=== PATIENT | female | born 1945 ===

== ENCOUNTER 2024-05-08 08:24 | Outpatient (REF) | payer OTHER, SELFPAY ==
--- NOTE | ~2024-05-08 | XR_ITS ---
EXAMINATION: XR LUMBAR SPINE CLINICAL INFORMATION: Spondylolisthesis, lumbosacral region M43.17. COMPARISON: None TECHNIQUE: AP, lateral, flexion and extension views of lumbar spine were obtained. FINDINGS: Grade 1 anterolisthesis of L4 on L5 and L5 on S1, stable over position changes. Otherwise, sagittal alignment is anatomic. Vertebral body heights are maintained. No fracture. Moderate L5-S1 degenerative disc disease with loss of intervertebral disc height. Otherwise, intervertebral disc spaces are maintained. Multilevel lower lumbar facet arthropathy. Visualized sacroiliac joints are normal. Paraspinal soft tissues are normal. XR/XR lumbar spine 4V min IMPRESSION: 1. Grade 1 anterolisthesis of L4 on L5 and L5 on S1, stable over position changes. 2. Moderate L5-S1 degenerative disc disease. 3. Multilevel lower lumbar facet arthropathy. Electronically signed by: Quynh Saleh DO 06/19/2024 02:48 PM [facility]
== END 2024-05-08 08:25 | disposition home or self-care (01) ==
LOC: HO.HOSX 08:24
PROVIDERS: PCP Registered Nurse; Visit Provider Neurological Surgery
DX: M43.17 Spondylolisthesis, lumbosacral region (principal)
CPT/HCPCS: 72110; 99202

== ENCOUNTER 2024-05-08 08:24 | Outpatient (AMB) | payer OTHER, SELFPAY ==
--- NOTE | 2024-05-08 09:01 | HO.SPINEOV ---
Vital Signs 05/08/24 09:24 Height 5 ft 3 in Weight 143 lb BMI 25.3 Intake Visit Reasons: LBP Intake Note: Ms. Juan Manuel Isabel is here today c/o low back pain that radiates down the legs. Contract Admin Required: No Physical Exam Vital Signs: BMI result Body Mass Index 25.3 Assessment & Plan Assessment & Plan (1) Acquired spondylolisthesis of lumbosacral region: Code(s): M43.17 - Spondylolisthesis, lumbosacral region Category: Medical Plan: Dear colleague Thank you for referring Puja Isabel to the office today with a chief complaint of severe low back pain and bilateral leg pain. HPI: This 79-year-old female has been suffering from progressive low back pain since 4 years. The pain is located across the lumbar spine and then radiates down her legs. She can not stand or walk for more than 10 minutes. Changing positions from sitting to standing is very painful. Laying down is the best position. She denies weakness or numbness. She was evaluated by a neurosurgeon at [facility] who recommended an L5-S1 fusion. She was scared and decided not to go ahead. She comes to see me for another opinion. She states that her back pain has further progressed over the last 2 years. The following conservative treatment options were tried without success antiinflammatories, tylenol, physical therapy physician guided home exercise plan, cortisone shots and acupuncture. PMH: Insomnia, fibromyalgia, osteopenia? Medications: None Allergies: NKDA Social history: She lives alone. She has a AUTO TRANSMISSION TECHNICIAN Physical Exam: Pleasant female. It is hard to get out of the chair due to low back pain. She stands in a flexed position. Extension of the lumbar spine is painful. Straight leg raise is negative. No motor or sensory deficits. No pathological reflexes. Radiological Studies: [facility] shows severe lumbar degenerative disc disease L5-S1 with a grade 1-2 spondylolisthesis and associated bilateral L5 foraminal stenosis. In addition, there are Modic changes of the endplates. A dynamic lumbar x-ray obtained today confirms the L5-S1 spondylolisthesis. Impression/Plan: This patient is suffering from progressive severe low back pain and symptoms of neurogenic claudication most likely caused by L5-S1 spondylolisthesis and associated bilateral foraminal stenosis. There is a possible history of osteopenia and therefore would like to obtain a CT scan of the lumbar spine in order to decide if a lumbar fusion is feasible. Thank you for allowing me to participate in your patients care. total time spent was 50 minutes in counseling ,coordination of plan, personal review of imaging, surgical decision making and subsequent plan Yunier Morfin MD, PhD Spine Fellowship Trained Neurosurgeon Director, [facility] Orders: Orders XR lumbar spine 4V min Today M43.17 - Spondylolisthesis, lumbosacral region CT lumbar spine wo IV con Today M43.17 - Spondylolisthesis, lumbosacral region Coding Level of Care Code New Pt Level 4 (80789) Diagnoses Acquired spondylolisthesis of lumbosacral region M43.17
[2024-05-08 09:24] VITALS: BMI 25.3
== END 2024-05-08 09:26 | disposition home or self-care (01) ==
LOC: HO.HNS 08:25
PROVIDERS: PCP Registered Nurse; Visit Provider Neurological Surgery
DX: M43.17 Spondylolisthesis, lumbosacral region (principal)
CPT/HCPCS: 99204

== ENCOUNTER 2024-06-17 07:21 | Outpatient (REF) | payer OTHER, SELFPAY | END 2024-06-17 07:22 | disposition home or self-care (01) | LOC: HO.CT 07:21 | PROVIDERS: PCP Registered Nurse; Visit Provider Neurological Surgery | DX: M43.17 Spondylolisthesis, lumbosacral region (principal) | CPT/HCPCS: 72131 ==

== ENCOUNTER 2024-07-24 12:51 | Outpatient (AMB) | payer OTHER, SELFPAY ==
--- NOTE | 2024-07-24 13:47 | A.SPINEOV_ITS ---
Intake Visit Reasons: CT f/up Intake Note: Ms. Juan Manuel Isabel is here today f/u on the results to her CT. Vice President Talent Management Required: No Allergies No Known Allergies Allergy (Verified 07/24/24 13:47) Assessment & Plan Assessment & Plan (1) Acquired spondylolisthesis of lumbosacral region: Code(s): M43.17 - Spondylolisthesis, lumbosacral region Category: Medical Plan Dear colleague, On 07/24/2024 I saw for follow-up Puja Isabel for her progressive low back pain radiating down both legs with walking and standing. She has a grade 1-2 L5-S1 spondylolisthesis and bilateral L5 foraminal stenosis responsible for her symptomatology. I ordered a CT of the lumbar spine to assess the bone quality which clearly shows osteopenia. The symptoms are debilitating to the patient and she is willing to take the risk of hardware failure. We discussed surgical options. An anterior lumbar interbody fusion/oblique lumbar interbody fusion L5-S1 would be the approach with the highest success rate in this patient. The vertebral implant will be sitting on the outer ring of the vertebral body which is least affected by osteopenia/osteoporosis and therefore reduces the risk of subsidence. It will also indirectly decompress the L5 foramina that should help with the neurogenic claudication symptoms. She wants to proceed. We will refer to the access surgeon, . The surgery will most likely be in the middle of September. She states that she recently had with the amount of blood in her stool in his scheduled for colonoscopy in December. I spent 30 minutes in his consult to review imaging and discussing plan of care. Thank you for allowing me take care of your patient. Do not hesitate to call me with any questions or concerns. Yunier Morfin MD, PhD Spine Fellowship Trained Neurosurgeon Director, [facility] Coding Level of Care Code Est Pt Level 4 (57141) Diagnoses Acquired spondylolisthesis of lumbosacral region M43.17
== END 2024-07-24 14:34 | disposition home or self-care (01) ==
PROVIDERS: PCP Registered Nurse; Visit Provider Neurological Surgery
DX: M43.17 Spondylolisthesis, lumbosacral region (principal)
CPT/HCPCS: 99214

== ENCOUNTER → 2024-07-24 12:51 | Outpatient (BNVA) | payer OTHER, SELFPAY | PROVIDERS: PCP Registered Nurse; Visit Provider Neurological Surgery | DX: M43.17 Spondylolisthesis, lumbosacral region (principal) | CPT/HCPCS: 99212 ==

== ENCOUNTER 2024-08-04 08:06 | Outpatient (BNV) | payer OTHER, SELFPAY | END 2024-08-04 11:35 | PROVIDERS: Admitting Provider Physician Assistant; PCP Registered Nurse; Visit Provider Radiology Diagnostic Radiology | DX: M43.27 Fusion of spine, lumbosacral region (principal) | CPT/HCPCS: 72170 ==

== ENCOUNTER → 2024-08-04 08:06 | Outpatient (BNV) | payer OTHER, SELFPAY | PROVIDERS: Admitting Provider Physician Assistant; PCP Registered Nurse; Visit Provider Surgery | DX: M43.17 Spondylolisthesis, lumbosacral region (principal); M54.16 Radiculopathy, lumbar region | CPT/HCPCS: 20930; 22558; 22612; 22840; 22845; 22853; 99024; 99499; G0180 ==

== ENCOUNTER 2024-08-06 13:52 | Emergency (ER) | payer OTHER, SELFPAY ==
--- NOTE | ~2024-08-06 | XR_ITS ---
EXAMINATION: XR LUMBOSACRAL SPINE CLINICAL INFORMATION: back pain , prior surgery COMPARISON: 05/08/2024. CT lumbar 06/17/2024. TECHNIQUE: Three views of the lumbosacral spine. FINDINGS: There has been interval posterior fusion and discectomy of L5-S1 with transpedicular screws, posterior connecting rods, and disc prosthesis. Hardware appears intact and well seated without loosening or complication. No scoliosis. Normal lordosis. 3 mm degenerative anterolisthesis of L4 on L5, as well as the 3 mm spondylolisthesis (fixated) L5 on S1. Otherwise normal facet alignment. Normal vertebral body alignment. Disc spaces at the nonsurgical levels are grossly preserved. No fracture, compression deformity, or suspicious bone lesions. Sacrum is intact. Mild arthritis both SI joints. No soft tissue abnormality. XR/XR lumbar spine 2-3V IMPRESSION: 1. Posterior fusion and discectomy L5-S1 with no definite complication. 2. There is a 3 mm degenerative anterolisthesis of L4 on L5. 3. Mild spondylosis. No acute bone abnormalities. Electronically signed by: Max Leyva MD 08/06/2024 04:08 PM [facility]
[2024-08-06 14:09] VITALS: BP 108/52; PULSE 78; O2SAT 97
[2024-08-06 14:10] VITALS: BP 92/59; PULSE 79; RESP 18; TEMP 37; O2SAT 98; BMI 25.7
[2024-08-06] MEDS: ondansetron HCL 4 MG/2 ML VIAL IVPUSH (14:30)
[2024-08-06] MEDS: Morphine Sulfate 4 MG/ML CARTRIDGE IVPUSH (14:31)
[2024-08-06] MEDS: 0.9 % Sodium Chloride 1,000 ML 999 ML IVCONT (14:31)
--- NOTE | 2024-08-06 14:31 | ED.BACK ---
HPI - Back Pain/Injury General Chief Complaint: Back Pain/Injury Stated Complaint: back pain post fusion surgery Time Seen by Provider: 08/06/24 14:12 Source: patient and EMS Mode of arrival: EMS Limitations: no limitations History of Present Illness HPI Narrative: This is 79 years old the patient postop day 2 L5-S1 diskectomy/arthrodesis presented to the emergency department with a chief complaint of lower back pain difficult to ambulate. She was just discharged yesterday. Denies any fever or chills MD elicited complaint: back pain Pertinent past history: prior back pain Timing: constant Severity: moderate Similar Symptoms Previously: Yes Quality: burning Location: lumbar spine Radiation: none Exacerbating factors: walking Relieving factors: other (rest) Associated symptoms: denies other symptoms Related Data Home Medications ?Medication ?Instructions ?Recorded ?Confirmed calcium 333 mg-vit D3 133 1 tab PO DAILY 07/31/24 07/31/24 unit-magnesium 133 mg-zinc 5 mg tablet cyclosporine 0.05 % eye drops in a 1 drp ophthalmic (eye) Q12H PRN 07/31/24 07/31/24 dropperette (Restasis) Eye Irritation loratadine 10 mg tablet 10 mg PO DAILY PRN Allergy Symptoms 07/31/24 07/31/24 pramipexole 0.125 mg tablet 0.125 mg PO BEDTIME PRN Muscle 07/31/24 07/31/24 Spasticity rosuvastatin 5 mg tablet 5 mg PO DAILY 07/31/24 07/31/24 venlafaxine 37.5 mg 37.5 mg PO DAILY PRN Anxiety 07/31/24 07/31/24 capsule,extended release 24 hr Previous Rx's ?Medication ?Instructions ?Recorded hydrocodone 5 mg-acetaminophen 325 1 tab PO Q4-6H PRN pain #30 tabs 08/05/24 mg tablet Allergies Allergy/AdvReac Type Severity Reaction Status Date / Time No Known Allergies Allergy Verified 08/06/24 14:13 Review of Systems Constitutional: Constitutional: Denies fever(s) Musculoskeletal: Musculoskeletal: Reports back pain PMFSH Past Medical History PMFSH Narrative: Chronic lower back pain status post diskectomy L5-S1 Medical History Arthritis Back pain Hyperlipidemia Restless leg syndrome Macrocytosis without anemia Cataracts, bilateral Cervicogenic headache Spondylolisthesis Allergic rhinitis Chronic vertigo Psychophysiological insomnia Presence of intraocular lens Osteoporosis Anxiety Depression Fibromyalgia Hx of fracture of foot GERD (gastroesophageal reflux disease) Pain in joint, shoulder region Surgical History H/O colonoscopy Hx of hand surgery History of sinus surgery Hx of bilateral cataract extraction History of lumpectomy of both breasts Hx of hysterectomy Social History Social History Household Members: None Housing: Apartment Are you a primary career center director to a significant other at home: No Do you presently have visiting nurse or 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: 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) Patient Tobacco Use Status: Never used Tobacco Smoked in Last 30 Days: No Use of substances other than those prescribed or required for medical reasons: No Advance Directives: No Advance Directives Information Provided: Yes Do you have a plan to hurt others: No Plan service: No Physical Exam Vital Signs: Vital Signs: Last Vital Signs Temp 98.6 F 08/06/24 14:10 Pulse 75 08/06/24 15:08 Resp 18 08/06/24 15:08 BP 143/67 H 08/06/24 15:08 Pulse Ox 98 08/06/24 15:08 O2 Del Method Room Air 08/06/24 15:08 BMI result Body Mass Index 25.7 No acute distress Const: General: cooperative Nutritional Appearance: average body habitus Orientation/consciousness: oriented to person and patient oriented x3 Limitations: no limitations HEENT: Head: Yes normal to inspection General nose exam: Normal external nose present Face and sinus: Yes normal facial exam Neck: Neck: Yes normal visual inspection and Yes full ROM Chest: Chest palpation & inspection: normal inspection of the chest Resp: Effort & Inspection: normal respiratory effort Auscultation: clear to auscultation bilaterally Cardio: Jugular venous distension: no JVD Rate: regular rate Rhythm: regular rhythm GI: Inspection: Yes normal to inspection Palpation (GI): Soft to palpation, not firm, nontender and no guarding Skin: General skin exam: no rashes or lesions noted and elasticity normal Lesions: no lesions Rashes: no rashes Neuro: Other: On examination she has a intact sensation she is able to feel my hand well in the lower extremity, reflexes are present knee, Babinski negative, strength good General: oriented to person and patient oriented x3 Cranial nerves: Yes CN's II-XII intact bilaterally Extrem: General: Yes normal to inspection Course Reevaluation(s) Reevaluation #1: d/w Dr Morfin will see pt in ED Time: 14:59 Reevaluation #2: seen by spinal surgery service eric [facility] re[facility] Time: 15:29 Reevaluation #3: Detailed signed out given to Dr Wu Time: 16:25 Medications Administered Discontinued Medications Generic Name Dose Route Start Last Admin Trade Name Freq PRN Reason Stop Dose Admin Sodium Chloride 1,000 mls @ 999 mls/hr 08/06/24 14:30 08/06/24 14:31 Ns IVCONT 08/06/24 15:30 999 mls/hr .Q1H1M DIANNE Administration Morphine Sulfate 4 mg 08/06/24 14:21 08/06/24 14:31 Morphine Sulfate 4 Mg/Ml Cartridge IVPUSH 08/06/24 14:22 4 mg ONCE ONE Administration Protocol Ondansetron HCl 4 mg 08/06/24 14:21 08/06/24 14:30 Ondansetron Hcl 4 Mg/2 Ml Vial IVPUSH 08/06/24 14:22 4 mg ONCE ONE Administration Medical Decision Making Medical Decision Making [facility] Narrative: Patient presented complaining of lower back pain status post diskectomy postop day 2 I sent a take a test message to Dr. Gayle and Jose E DAVEY 16:23 patient was seen by the spine surgery Service see note by TAMICA Hilton plan is rehab ,PT and geriatric case manager consulted Differential Diagnosis Differential Diagnoses: The differential diagnosis associated with the presentation includes Muscular spasm/I doubt infection Admission/Observation Consideration of admission/observation: Escalation of care including admission/observation considered Consult Healthcare Provider Management of the patient was discussed with: [employer] Marketing spine service Lab Data MDM Lab Attestation statement: I reviewed the patient's lab results. 08/06/24 14:28 08/06/24 14:28 Labs: Lab Results 08/06/24 Range/Units 14:28 WBC 13.2 H (4.8-10.8) X10*3/uL RBC 3.56 L (4.20-5.50) X10*6/uL Hgb 11.0 L (12.0-16.0) g/dl Hct 33.4 L (37.0-47.0) % MCV 93.8 (80.0-98.0) fL MCH 30.9 (27.0-33.0) pg MCHC 32.9 (31.0-35.0) g/dl RDW 13.9 (11.0-16.0) % Plt Count 185 (160-400) X10*3/uL MPV 10.8 (9.4-12.3) fL Immature Gran % (Auto) 0.8 H (0.0-0.4) % Neut % (Auto) 64.3 (45-73) % Lymph % (Auto) 25.7 (20-40) % [place] % (Auto) 8.1 (2-11) % Eos % (Auto) 0.7 (0-4) % Baso % (Auto) 0.4 (0-2) % Lymph # (Auto) 3.4 (1.2-4.9) X10*3/uL [place] # (Auto) 1.1 (0.1-1.2) X10*3/uL Eos # (Auto) 0.1 (0.0-0.4) X10*3/uL Baso # (Auto) 0.1 (0.0-0.2) X10*3/uL Abs Immat Gran (auto) 0.11 H (0.00-0.03) X10*3/uL Absolute Neuts (auto) 8.5 H (2.0-8.3) x10*3/uL Absolute Nucleated RBC 0.000 (0.0-0.012) X10*3/uL Nucleated RBC % (auto) 0.0 (0.0-0.2) /100WBC Sodium 141 (135-145) mmol/L Potassium 3.5 (3.3-5.1) mmol/L Chloride 110 H (96-108) mmol/L Carbon Dioxide 26 (22-29) mmol/L Anion Gap 9 L (12-20) BUN 9 (9-16) mg/dL Creatinine 0.79 (0.5-1.4) mg/dL Estim Creat Clear Calc 53.5 Estimated GFR > 60 Random Glucose 156 H (60-115) mg/dL Calcium 8.9 (8.4-10.2) mg/dL Total Bilirubin 0.7 (0.0-1.0) mg/dL AST 49 H (5-31) U/L ALT 20 (0-31) U/L Alkaline Phosphatase 56 (39-117) U/L Total Protein 6.5 (6.5-8.0) g/dL Albumin 3.8 (3.5-5.0) g/dL Independent Interpretation I performed an independent interpretation of an: Plain X-Ray Radiology Impression Discussion of test interpretation with radiology: I have reviewed the radiologist's reading. Radiologist Impression: No fracture, compression deformity, or suspicious bone lesions. Sacrum is intact. Mild arthritis both SI joints. No soft tissue abnormality. XR/XR lumbar spine 2-3V IMPRESSION: 1. Posterior fusion and discectomy L5-S1 with no definite complication. 2. There is a 3 mm degenerative anterolisthesis of L4 on L5. 3. Mild spondylosis. No acute bone abnormalities. Electronically signed by: Max Leyva MD 08/06/2024 04:08 PM [facility] Dictated By: Max Leyva MD Signed By: <Electronically signed by Max Leyva MD in OV> 08/06/24 1608 DD/ 1555 TD/TT: 08/06/24 1555 Coil Winder Repair: Independent Historian Clinical information obtained from an independent historian. History obtained from or confirmed by: EMS External Record Review External record reviewed: Inpatient record Discharge Plan Discharge Clinical Impression: Back pain Qualifiers: Back pain location: low back pain Chronicity: unspecified Back pain laterality: midline Sciatica presence: without sciatica Qualified Code(s): M54.50 - Low back pain, unspecified Patient Disposition: Still a Patient Prescriptions: No Action venlafaxine 37.5 mg capsule,extended release 24hr 37.5 mg PO DAILY PRN (Reason: Anxiety) pramipexole 0.125 mg tablet 0.125 mg PO BEDTIME PRN (Reason: Muscle Spasticity) loratadine 10 mg tablet 10 mg PO DAILY PRN (Reason: Allergy Symptoms) cyclosporine [Restasis] 0.05 % Dropperette 1 drp OPHTHALMIC (EYE) Q12H PRN (Reason: Eye Irritation) Patient Comments: PATIENT STATES SHE HAS NOT BEEN TAKING THE LAST TWO WEEKS rosuvastatin 5 mg tablet 5 mg PO DAILY calcium carb-D3-mag ox-zinc ox 333 mg-133 unit -133 mg-5 mg Tablet 1 tab PO DAILY hydrocodone-acetaminophen 5-325 mg tablet 1 tab PO Q4-6H PRN (Reason: pain) Qty: 30 0RF Rx Instructions: Partial Fill upon patient request. Print Language: Venezuelan
[2024-08-06 14:32] LABS: MANUAL DIFF FLAG NO
[2024-08-06 14:35] LABS: Basophils Absolute Auto 0.1 X10*3/uL (0.0-0.2); Basophils Percent Auto 0.4 % (0-2); Eosinophils Absolute Auto 0.1 X10*3/uL (0.0-0.4); Eosinophils Percent Auto 0.7 % (0-4); Hematocrit 33.4 % (37.0-47.0); Imm Gran Abs Auto 0.11 X10*3/uL (0.00-0.03); Imm Gran Pct Auto 0.8 % (0.0-0.4); Lymphocytes Absolute Auto 3.4 X10*3/uL (1.2-4.9); Lymphocytes Percent Auto 25.7 % (20-40); Mean Corpuscular HGB Conc 32.9 g/dl (31.0-35.0); Mean Corpuscular Hemoglobin 30.9 pg (27.0-33.0); Mean Corpuscular Volume 93.8 fL (80.0-98.0); Mean Platelet Volume 10.8 fL (9.4-12.3); Monocytes Absolute Auto 1.1 X10*3/uL (0.1-1.2); Monocytes Percent Auto 8.1 % (2-11); Neutrophils Absolute Auto 8.5 x10*3/uL (2.0-8.3); Neutrophils Percent Auto 64.3 % (45-73); Platelet Count 185 X10*3/uL (160-400); Red Blood Count 3.56 X10*6/uL (4.20-5.50); Red Cell Distribution Width 13.9 % (11.0-16.0); White Blood Count 13.2 X10*3/uL (4.8-10.8)
[2024-08-06 14:50] LABS: Alanine Aminotransferase 20 U/L (0-31); Albumin Level 3.8 g/dL (3.5-5.0); Alkaline Phosphatase 56 U/L (39-117); Anion Gap 9 (12-20); Aspartate Amino Transferase 49 U/L (5-31); Bilirubin Total 0.7 mg/dL (0.0-1.0); Blood Urea Nitrogen 9 mg/dL (9-16); Calcium 8.9 mg/dL (8.4-10.2); Carbon Dioxide 26 mmol/L (22-29); Chloride 110 mmol/L (96-108); Creatinine Clr Calc Pharmacy 53.5; Estimated Glomerular Filt Rate > 60; Glucose Random 156 mg/dL (60-115); Potassium 3.5 mmol/L (3.3-5.1); Sodium 141 mmol/L (135-145); Total Protein 6.5 g/dL (6.5-8.0)
[2024-08-06 15:08] VITALS: BP 143/67; PULSE 75; RESP 18; O2SAT 98
[2024-08-06 17:28] LABS: COVID-19 Test Negative (Negative); IDNOW Serial# 58CA691E
--- NOTE | 2024-08-06 18:08 | PHA.MEDREC ---
Addendum entered by Will Armstrong RPh 08/06/24 18:10: reviewed by [facility] Original Note: Pharmacy Consult ? Medication Reconciliation Pharmacy has completed the medication reconciliation. [place] [facility] [place]. Utilized discharge packet to confirm med list.
--- NOTE | 2024-08-06 18:12 | PC.NURSE ---
RN-RN report given to overflow.
--- NOTE | 2024-08-06 18:20 | MHC.CM.ED ---
CM met with patient and her daughter at the request of Dr. Baugh. Pt is A&Ox4. Pt had L5S1 AL[place] [facility] [place]. Was discharged on 08/05. At that time, patient requested discharge home with home therapy even though STR was recommended.. Pt was unable to care for herself at home, had increased pain and returned to the ED for rehab. Pt lives alone. 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 Uses a cane and a rollator. Lives on second floor, one level. Has elevator. HCP reviewed, completed and signed. HCP/daughter Ingrid Cota ([phone]). Pt and daughter are requesting acute rehab with [facility] as first choice. Referrals placed CM will follow for safe discharge plan.
--- NOTE | 2024-08-06 18:37 | PC.NURSE ---
Spoke w daughter, Ingrid, who said that she will bring in pt's Restasis tomorrow when she comes to visit the patient
[2024-08-06 18:51] VITALS: BP 113/53; PULSE 84; RESP 20; TEMP 37.2; O2SAT 95
--- OUTSIDE RECORDS SUMMARY | 2024-08-06 18:52 | XMS_ITS | Clinical Summary ---
Author Organization [facility] ity Address [address] [place] [address] Care Team Providers Care Woolen Suiting Shrinker Name Role Phone Caridad Wu DO Primary Care Provider [phone] Social History Tobacco Use Types Packs/Day Years Used Date Smoking Tobacco: Never Assessed Sex and Gender Information Value Date Recorded Sex Assigned at Not on file Gender Identity Not on file Sexual Orientation Not on file Plan of Treatment Health Maintenance Due Date Last Done Comments DTaP,Tdap,and Td Vaccines (1 - Tdap) 1965 Zoster Vaccines (1 of 2) 01/08/1996 Pneumococcal Vaccine: 65+ Ye ars (1 of 1 - PCV) 2011 RSV Immunization Patients 60 + Years Old (1 - 1-dose 75+ series) 2021 COVID-19 Vaccine ( - 2023-2 5 season) 2024 Influenza Vaccine (#1) 2024 HIB Vaccines Aged Out No longer eligi ble based on patient's age to complete this topic HPV Vaccines Aged Out No longer eligi ble based on patient's age to complete this topic Hepatitis A Vaccines Aged Out No long er eligible based on patient's age to complete this topic Hepatitis B Vaccines Aged Out No long er eligible based on patient's age to complete this topic IPV Vaccines Aged Out No longer eligi ble based on patient's age to complete this topic MMR Vaccines Aged Out No longer eligi ble based on patient's age to complete this topic Meningococcal ACWY Vaccine Aged Out N o longer eligible based on patient's age to complete this topic RSV Immunization Patients Un althea 20 months Aged Out No longer eligible b ased on patient's age to complete this topic Varicella Vaccines Aged Out No longer eligible based on patient's age to complete this topic Care Teams Woolen Suiting Shrinker Relationship Specialty Start Date End Date Caridad Wu DO [address] [place], [place] PCP - General Family Medicine 09/16/19
--- OUTSIDE RECORDS SUMMARY | 2024-08-06 18:52 | XMS_ITS | Encounter Summary ---
Author Organization [facility], Address [address] [place] [address] Phone Care Team Providers Care District Wire Chief Name Role Phone Linda Curry MD Primary Care Provider + Encounter Details Date Type Department Care Team (Late st Contact Info) Description 07/31/2024 Telephone [facility] - Vascular Access Center [address] [place] [address] [place] [address] Sisi Chambers [address] [place] [phone] Social History Tobacco Use Types Packs/Day Years Used Date Smoking Tobacco: Never Assessed Comments Unknown Sex and Gender Information Value Date Recorded Sex Assigned at Not on file Legal Sex Female 2:18 PM EST Gender Identity Not on file Sexual Orientation Not on file documented as of this encounter Miscellaneous Notes * Telephone Encounter - Sisi Chambers - 07/31/2024 10:32 AM EST OFFICE VISIT REMINDER COMMUNICATION Spoke to Puja and confirmed office visit scheduled on 08/03/24. documented in this encounter Plan of Treatment Not on file documented as of this encounter Visit Diagnoses Not on filedocumented in this encounter Care Teams District Wire Chief Relationship Specialty Start Date End Date Linda Curry MD [address] [address] PCP - General Internal Medicine 07/30/24 documented as of this encounter
--- OUTSIDE RECORDS SUMMARY | 2024-08-06 18:52 | XMS_ITS | Clinical Summary ---
Author Organization [facility] Address [address] [place] [address] Care Team Providers Care Calculator Operator Name Role Phone Linda Curry MD Primary Care Provider + Medications acetaminophen- codeine (TYLENOL with CODEINE #3) 300-30 MG per tablet 04/27/20 24 Active cycloSPORINE (RESTASIS) 0.05 % ophthalmic emulsion 07/06/20 24 Active Doxepin HCl 3 MG tablet 07/22/19 25 Active eszopiclone (LUNESTA) 2 MG tablet 07/03/20 24 Active loratadine (CLARITIN) 10 MG tablet 07/16/19 25 Active Na Sulfate-K Sulfate-Mg Sulf 17.5-3.13-1.6 GM/177ML solution 07/09/19 25 Active pramipexole (MIRAPEX) 0.125 MG tablet 07/16/19 25 Active rosuvastatin (CRESTOR) 5 MG tablet 07/16/19 25 Active Gas Relief Extra Strength 125 MG chewable tablet 06/12/20 24 Active Chlorhexidine Gluconate (Hibiclens) 4 % solution Apply 5 mL topically in the morning and 5 mL in the evening. Do all this for 3 days. 100 mL 08/03/19 25 025 Active chlorhexidine (Peridex) 0.12 % solution Use 15 mL in the mouth or throat in the morning and 15 mL in the evening. Do all this for 14 days. 120 mL 08/03/19 25 025 Discontinued Active Problems Problem Noted Date Diagnosed Date Low back pain 07/31/2024 Encounters Date Type Department Care Team Description 08/03/2024 1:30 PM EST Office Visit [facility], - Vascular Access Center [address] [place] [phone] Yovanny Gimenez MD Degeneration of lumbar intervertebral disc <With discogenic back pain and lower extremity pain> (Primary Dx) 07/31/2024 Telephone [facility], - Vascular Access Center [address] [place] [phone] Sisi Chambers from Last 3 Months Social History Tobacco Use Types Packs/Day Years Used Date Smoking Tobacco: Never Assessed Comments Unknown Sex and Gender Information Value Date Recorded Sex Assigned at Not on file Legal Sex Female 2:18 PM EST Gender Identity Not on file Sexual Orientation Not on file Plan of Treatment Health Maintenance Due Date Last Done Comments Pneumococcal Vaccine: 65+ Ye ars (1 of 1 - PCV) 2011 Influenza Vaccine (#1) 2024 Hepatitis B Vaccine Aged Out No longe r eligible based on patient's age to complete this topic Insurance [facility] ([id number]) Care Teams Calculator Operator Relationship Specialty Start Date End Date Linda Curry MD [address] [address] PCP - General Internal Medicine 07/30/24
--- OUTSIDE RECORDS SUMMARY | 2024-08-06 18:52 | XMS_ITS | Encounter Summary ---
Author Organization [facility], Address [address] [place] [address] Phone Care Team Providers Care Precision Aircraft Systems Assembler Name Role Phone Linda Curry MD Primary Care Provider + Encounter Details Date Type Department Care Team (Latest Contact Info) Description 08/03/2024 1:30 PM EST Office Visit [facility] - [facility] Center [address] [place] [phone] Yovanny Gimenez MD [address] [place] [phone] Degeneration of lumbar intervertebral disc <With discogenic back pain and lower extremity pain> (Primary Dx) Social History Tobacco Use Types Packs/Day Years Used Date Smoking Tobacco: Never Assessed Comments Unknown Sex and Gender Information Value Date Recorded Sex Assigned at Not on file Legal Sex Female 2:18 PM EST Gender Identity Not on file Sexual Orientation Not on file documented as of this encounter Progress Notes * Yovanny Gimenez MD - 08/03/2024 1:30 PM EST History and Physical 08/03/24 Chief Complaint: Patient presents today for evaluation for an Anterior or Oblique lumbar interbody fusion access. Patient was evaluated and scheduled for the procedure by Dr. Morfin. History of Present Illness: Patient has had lower back pain for years with radiation to the legs Review of Systems: Chest pain/angina: [] Yes. [x] No. Shortness of breath: [] Yes. [x] No. Circulation problems: [] Yes. [x] No. History of deep venous thrombosis or clotting problems: [] Yes. [x] No. Swelling: [] Yes. [x] No. PMH: unremarkable PSH: open tubal ligation years ago Social History Socioeconomic History Marital status: Not on file Spouse name: Not on file Number of children: Not on file Years of education: Not on file Highest education level: Not on file Occupational History Not on file Tobacco Use Smoking status: Not on file Smokeless tobacco: Not on file Substance and Sexual Activity Alcohol use: Not on file Drug use: Not on file Sexual activity: Not on file Other Topics Concern Not on file Social History Narrative Not on file Social Drivers of Health Financial Resource Strain: Not on file Food Insecurity: Not on file Transportation Needs: Not on file Physical Activity: Not on file Stress: Not on file Social Connections: Not on file Intimate Partner Violence: Not on file Housing Stability: Not on file No family history on file. There were no vitals filed for this visit. Vitals reviewed. Constitutional: She is oriented to person, place, and time. She does not appear ill. Looks much younger then her age Cardiovascular: Normal rate and regular rhythm. Abdominal: Soft. She exhibits no distension and no mass. There is no abdominal tenderness. There isno guarding. Lower midline scar, no hernia Neurological: She is alert and oriented to person, place, and time. Psychiatric: She has a normal mood and affect. Her behavior is normal. Judgment normal. Impression: Patient is an acceptable candidate for anterior approach for lumbar fusion surgery.. Intervention is planned at [x] L5-S1 level [x]Medical records reviewed. []Labs reviewed. [x]Imaging studies reviewed. [x]Different surgical access approaches were explained to the patient. I discussed with the patient risks of bleeding, venous and arterial injury, life threatening bleeding, infection, hernia formation, bowel and ureteral injury, venous thrombosis and embolism. I gave instructions for preoperative skin preparation with Hibiclens starting two days before the surgery day as well as stool softener. Notes: Yovanny Gimenez MD documented in this encounter Plan of Treatment Not on file documented as of this encounter Visit Diagnoses Diagnosis Degeneration of lumbar intervertebral disc <With discogenic back pain and lower extremity pain>- Primary documented in this encounter Care Teams Precision Aircraft Systems Assembler Relationship Specialty Start Date End Date Linda Curry MD [address] [place] [address] PCP - General Internal Medicine 07/30/24 documented as of this encounter
--- NOTE | 2024-08-06 19:20 | PC.NURSE ---
Addendum entered by Latoya Hall RN 08/06/24 23:09: Patient medicated for pain with prn lorcet per SEP with +effect reported by patient. Patient resting in bed at this time, breathing remains even and unlabored without distress. Assisted with repositioning for skin integrity and musculoskeletal comfort. Denies urge to void at this time as well as pressure or discomfort. Patient encouraged to call should this change, for assistance to commode. Handoff report given to oncoming ED RN at 23:00. Original Note: Patient arrived to ED overflow bed 3 at ~18:30. Patient seen at present for back pain and difficulty ambulating in the setting of a recent spinal fusion here on 08/04 with discharge home on 08/05 (see CM note, MD report for full details). A&Ox4. Breathing is even and unlabored without distress on room air. Pt denies chest pain, sob, and n/v. Only complaint offered by patient at this time is back pain rated 9/10. Site visualized, has steri-strips that are OPERATING COST CLERK that are dry and intact with old, dried staining, some soft bruising surrounding these incisions. Surgical site is appropriately tender to palpation. Site was imaged in the ED prior to arrival. Covering provider Tiera Leonard was made aware of patient reported pain, keno writer / runner awaiting requested medication orders. Ice packs offered and placed at this time. +BSx4, abdomen soft, non-tender. Patient reports decreased appetite though states she has been tolerating small snacks and drinking well. Activity encouraged and educated on. +Teach back and return demonstration; purewick was removed on arrival and patient agreeable to using the bedside commode, assisted with a walker and standby assistance with fair toleration. Back to bed. Patient educated carbon furnace operator reddy, bed mechanics, and plan of care. Call reddy within reach. Bed alarm and safety measures in place. Plan of care continues.
[2024-08-06 20:46] VITALS: BP 127/58; PULSE 81; RESP 14; TEMP 36.6; O2SAT 98
[2024-08-06] MEDS: HYDROcodone Bit/Acetam 5/325 TABLET 1 TAB PO (20:52)
--- NOTE | 2024-08-06 23:26 | PC.NURSE ---
assumed care of pt at 23:15
[2024-08-07 06:06] VITALS: BP 110/59; PULSE 68; TEMP 36.6; O2SAT 95
[2024-08-07] MEDS: HYDROcodone Bit/Acetam 5/325 TABLET 1 TAB PO ×2 (07:49→15:29)
[2024-08-07] MEDS: Docusate Sodium 100 MG CAPSULE PO (08:48)
[2024-08-07] MEDS: Sennosides 8.6 MG TABLET 17.2 MG PO (08:48)
[2024-08-07] MEDS: Atorvastatin Calcium 20 MG TABLET PO (08:49)
[2024-08-07] MEDS: polyethylene glycoL 3350 17 GM POWD.PACK PO (08:49)
--- NOTE | 2024-08-07 10:36 | MHC.CM.ED ---
Addendum entered by Kate Villatoro 08/07/24 12:20: OT eval completed. Acute rehab is recommended. [facility] Original Note: Patient remains in ER. PT rec rehab. [facility] is unable to accept. [facility] is requesting OT eval because [facility] will require it. OT eval ordered and pending. [facility] is still reviewing. Continue to monitor for d/c needs.
[2024-08-07 13:15] VITALS: BP 115/53; PULSE 81; RESP 16; TEMP 37.2; O2SAT 94
[2024-08-07 20:55] VITALS: BP 121/77; PULSE 77; RESP 18; TEMP 37.1; O2SAT 95
[2024-08-08] MEDS: HYDROcodone Bit/Acetam 5/325 TABLET 1 TAB PO ×5 (00:11→23:50)
--- NOTE | 2024-08-08 00:18 | PC.NURSE ---
Paitent rating pain 10/10 at this time. Pain medication administered. Will continue to monitor patients pain progression post administration
--- NOTE | 2024-08-08 04:36 | PC.NURSE ---
Patient up to bedside commode with assist of 2. Steri strips are clean dry and intact on the back with circumferential bruising noted.
[2024-08-08 04:38] VITALS: BP 115/57; PULSE 69; RESP 18; TEMP 36.6; O2SAT 96
[2024-08-08 08:13] VITALS: BP 106/52; PULSE 65; RESP 19; TEMP 36.3; O2SAT 96
[2024-08-08] MEDS: Sennosides 8.6 MG TABLET 17.2 MG PO (10:53)
[2024-08-08] MEDS: Atorvastatin Calcium 20 MG TABLET PO (10:53)
[2024-08-08 14:00] VITALS: BP 111/55; PULSE 65; TEMP 36.1; O2SAT 94
[2024-08-08] MEDS: Docusate Sodium 100 MG CAPSULE PO (14:48)
[2024-08-08] MEDS: polyethylene glycoL 3350 17 GM POWD.PACK PO (14:48)
[2024-08-08 18:04] VITALS: BP 111/56; PULSE 73; RESP 16; TEMP 36.9; O2SAT 96
[2024-08-08 21:17] VITALS: BP 109/63; PULSE 61; RESP 16; TEMP 36.6; O2SAT 96
[2024-08-09 06:00] VITALS: BP 116/56; PULSE 61; RESP 16; TEMP 36.1; O2SAT 96
[2024-08-09] MEDS: HYDROcodone Bit/Acetam 5/325 TABLET 1 TAB PO ×2 (06:04→17:19)
[2024-08-09 08:38] VITALS: BP 117/56; PULSE 64; RESP 18; TEMP 36.3; O2SAT 98
[2024-08-09] MEDS: Atorvastatin Calcium 20 MG TABLET PO (10:00)
--- NOTE | 2024-08-09 11:34 | MHC.EDTECH ---
I set patient for a shower while patient shower i changed patient bed linen and gave her a clean hospital gown patient is a stand by patient. patient also washed hair brushed teeth. Nurse aware
[2024-08-09 16:09] VITALS: BP 127/61; PULSE 69; RESP 17; TEMP 37.1; O2SAT 98
--- NOTE | 2024-08-09 19:24 | PC.NURSE ---
pt reported continued constipation increasing to have nausea despite prn and additional meds last few days and drinking large amounts of prune juice. She requested something stronger to make her go today. ELECTRICAL INTERN aware and soap suds enema ordered and given once materials were procured. Pt up to commode and had large output of multiple hard stools. Pt became dizzy, pale and weak and was quickly assisted back to bed in slight trendelenburg. Vitals taken with HR initially 54 and bp 148/67. HR back to trended quickly back to 70's and color returned to normal. She stated immediate improvement of symptoms. ELECTRICAL INTERN Hailee Carreon made aware. Pt had continued cramps and then passed a very large soft BM using bedpan with cautions to avoid straining. No repeat of first episode. Pt reported increase in pain from activity and had been avoiding pain meds due to the constipation. She had a Lorcet with pain down to 5/10 and pt stated this is the best the pain has been in a few days.
[2024-08-09 21:33] VITALS: BP 108/53; PULSE 66; RESP 16; TEMP 36.9; O2SAT 96
[2024-08-10] MEDS: HYDROcodone Bit/Acetam 5/325 TABLET 1 TAB PO ×3 (01:48→19:52)
[2024-08-10] MEDS: Pramipexole Di-HCL 0.125 MG TABLET PO (02:09)
--- NOTE | 2024-08-10 02:12 | PC.NURSE ---
patient c/o 8/ pain lortab and mirapex administered.
[2024-08-10 06:09] VITALS: BP 98/59; PULSE 73; RESP 16; TEMP 37.5; O2SAT 97
--- NOTE | 2024-08-10 09:21 | MHC.CM.ED ---
Patient remains in ER overflow. Updated PT and OT evals completed. Clinical updates sent to [facility]. Continue to monitor for d/c needs.
--- NOTE | 2024-08-10 13:22 | MHC.CM.ED ---
[facility] no longer has a bed to offer due to no discharges today. [facility] is still able to offer a bed and is in the process of trying to obtain insurance auth. Patient aware and agreeable. Continue to monitor for d/c needs.
[2024-08-10 14:00] VITALS: BP 126/89; PULSE 85; RESP 14; TEMP 38; O2SAT 97
[2024-08-10 19:48] VITALS: TEMP 37.6
--- NOTE | 2024-08-10 19:58 | PC.NURSE ---
this rn assumed care of pt @ 1900. temp 99.7 orally reports 02/14 pain pt medicated with prn hydrophone with tylenol
[2024-08-10 20:18] VITALS: BP 122/60; PULSE 81; RESP 16; TEMP 37.6; O2SAT 97
[2024-08-10 20:53] VITALS: TEMP 38.1
--- NOTE | 2024-08-10 21:17 | PC.NURSE ---
lore jaz made aware of pt temp of 100.5, orders placed for serology swabs no additional orders at this time
[2024-08-10 21:50] LABS: Influenza A PCR POSITIVE (Negative); Influenza B PCR NEGATIVE (Negative); Resp Syncy Virus RNA Qual PCR NEGATIVE (Negative); SARS COV2 PCR INHOUSE NEGATIVE (Negative)
[2024-08-10] MEDS: Acetaminophen 325 MG TABLET 650 MG PO (23:42)
[2024-08-10] MEDS: Oseltamivir Phosphate 75 MG CAPSULE PO (23:46)
[2024-08-11] VITALS (8 sets, daily range): BP systolic 96–119; BP diastolic 49–57; PULSE 66–76; RESP 17–20; TEMP 36.4–38.9; O2SAT 96–98
--- NOTE | 2024-08-11 00:51 | PC.NURSE ---
temp recheck 102.0 aden jaz made aware blankets removed from patient pt agreeable awaiting orders from jaz
--- NOTE | 2024-08-11 01:33 | PC.NURSE ---
per suporvising nurse temp 98.8 pt began vomiting states no more meds declining motrin at this time, states does not want anything for n/v
[2024-08-11] MEDS: Ibuprofen 400 MG TABLET PO (03:02)
--- NOTE | 2024-08-11 03:06 | PC.NURSE ---
pt agreeable to dose of motrin at this time pt repositioned back to bed denies pain at this time
--- NOTE | 2024-08-11 06:52 | PC.NURSE ---
pt assisted to use bedside commode pt one assist stand and pivot to commode pt denies pain at this time temp 98.2 orally
[2024-08-11] MEDS: Oseltamivir Phosphate 30 MG CAPSULE PO ×2 (09:07→21:10)
--- NOTE | 2024-08-11 11:53 | MHC.CM.PN ---
Insurance auth obtained for pt to got to acute rehab at [facility] today, however due to pt testing positive for influenza-A on 08/10, they can no longer accept her (they do no accept pts on precautions per admissions liaison).
[2024-08-11] MEDS: HYDROcodone Bit/Acetam 5/325 TABLET 1 TAB PO ×2 (16:17→21:09)
--- NOTE | 2024-08-11 18:02 | MHC.CM.ED ---
CM received TIGER from Alleg[facility] from PT. Concerns about bed mobility. If rehab is not an option, feels patient could go home with a hospital bed or recliner. Pt is not interested in [facility]. CM had a long conversation with patient. She is aware that [facility] cannot offer her a bed with Flu A. She is wondering if she can get a bed arranged from [facility], so that she could go home and not go to rehab. CM will call [facility] in the morning regarding possible hospital bed for patient at home. No referrals at [facility] per patient request. Staff feels patient is moving well and pain is more controlled.
--- NOTE | 2024-08-11 18:42 | PC.NURSE ---
Patient on droplet precautions for positive influenza A, patient was moved from bed 3 to bed 1 for better isolation. Patient refused atorvastatin but did take the tamiflu. Has been getting oob to the commode with stand by assist. Medicated for pain once this shift. Patient aware that she no longer can be discharged to planned facility due to positive test.
[2024-08-12 05:50] VITALS: BP 103/55; PULSE 72; RESP 16; TEMP 36.6; O2SAT 95
[2024-08-12] MEDS: Pramipexole Di-HCL 0.125 MG TABLET PO (06:17)
[2024-08-12] MEDS: HYDROcodone Bit/Acetam 5/325 TABLET 1 TAB PO ×2 (09:18→21:34)
[2024-08-12] MEDS: Oseltamivir Phosphate 30 MG CAPSULE PO ×2 (09:18→21:34)
--- NOTE | 2024-08-12 09:46 | MHC.CM.ED ---
Addendum entered by Kate Villatoro 08/12/24 13:12: Met with patient in regards to discharge planning. Patient aware T/W is waiting to hear from [facility] about the possibility of getting a hospital bed. Original Note: Patient remains in ER overflow. Patient is now Flu A positive. [facility] is unable to accept. Patient wants to d/c home. Requesting hospital bed. Patient is active with [facility]. T/W spoke with Seven of [facility]. He will have acute care physician reach out to T/W to determine if this is possible. Patient was d/c'd home on 08/05 with [facility]. Return referral made in [facility]. Continue to monitor for d/c needs.
--- NOTE | 2024-08-12 13:33 | MHC.CM.ED ---
Spoke with Kaela, [employer] [employer] for patient. Kaela states info will need to be sent to [employer]. That is their current DME company. Hospital bed referral form completed and signed by Dr Holley. Form and supporting clinical info faxed to [facility] at [phone]. Continue to monitor for d/c needs.
[2024-08-12 14:42] VITALS: BP 133/78; PULSE 73; RESP 13; TEMP 37.1; O2SAT 98
[2024-08-13 06:17] VITALS: BP 98/50; PULSE 74; RESP 16; TEMP 36.8; O2SAT 97
--- NOTE | 2024-08-13 07:45 | MHC.EDTECH ---
Hourly rounds completed and Patient ate her breakfast, she is lying in her be comfortable within call reddy in her reach.
--- NOTE | 2024-08-13 07:58 | PC.NURSE ---
Pt. refused 09:00 Jeff
--- NOTE | 2024-08-13 08:02 | PC.NURSE ---
Awaiting missing Tamiflu at this time.
--- NOTE | 2024-08-13 08:15 | MHC.EDTECH ---
I helped the patient to the bathroom using the walker did very well.
[2024-08-13] MEDS: Oseltamivir Phosphate 30 MG CAPSULE PO ×2 (08:30→20:29)
--- NOTE | 2024-08-13 12:41 | MHC.CM.ED ---
Addendum entered by Kate Villatoro 08/13/24 15:33: Updated patient will hospital bed issue. Patient wants to d/c home tomorrow 08/14 even if hospital bed is not available. [facility] made aware. Patient will speak to her OTHER SALES SUPPORT WORKER to see if she is able to transport patient home or if transportation will be arranged. Original Note: Patient remains in ER overflow. Spoke with [facility] regarding hospital bed. Referral has been accepted by [facility] in [facility]. T/W spoke with Pet[facility] via telephone at [phone]. Per Pet[facility], more documentation is required for bed. Clinical info updated and faxed to [phone] as requested. Continue to monitor for d/c needs.
[2024-08-13 14:22] VITALS: BP 108/46; PULSE 65; RESP 16; TEMP 37; O2SAT 98
--- NOTE | 2024-08-13 17:54 | PC.NURSE ---
Patient resting in bed, reports no pain, requested to speak with case management re: discharge plan, she does not want to wait for hospital bed, wants to go home tomorrow. Patient stated her RADIOLOGIC ELECTRONIC SPECIALIST will pick her up at 10:00 tomorrow, Niurka case specialist aware.
[2024-08-13] MEDS: HYDROcodone Bit/Acetam 5/325 TABLET 1 TAB PO (18:37)
[2024-08-13 22:00] VITALS: BP 119/55; PULSE 63; RESP 12; TEMP 36.6; O2SAT 98
--- NOTE | 2024-08-13 22:02 | MHC.CM.ED ---
Pt [employer] will pick her up tomorrow 08/14 for discharge at 10 am. Provider aware
--- NOTE | 2024-08-13 23:17 | PC.NURSE ---
Pt resting in bed eyes closed, respirations even unlabored. Awaiting dc home in am will continue to monitor.
--- NOTE | 2024-08-14 03:59 | PC.NURSE ---
Pt resting in bed eyes closed, skin pwd respirations even unlabored. NAD, will continue to monitor.
[2024-08-14] MEDS: HYDROcodone Bit/Acetam 5/325 TABLET 1 TAB PO (04:15)
--- NOTE | 2024-08-14 04:20 | PC.NURSE ---
Pt awoke requesting prn pain med for back. Administered per SEP, offers no additional complaints.
[2024-08-14 04:49] VITALS: BP 104/55; PULSE 63; RESP 16; TEMP 36.3; O2SAT 98
[2024-08-14 07:44] VITALS: BP 112/58; PULSE 56; RESP 16; TEMP 36.2; O2SAT 98
--- NOTE | 2024-08-14 08:43 | MHC.CM.ED ---
Patient remains in ER overflow. Patient will d/c home with [facility] via ELECTION ASSISTANT at 10am. Patient, Siena GARG and Emerita HERNÁNDEZ aware. Continue to monitor for d/c needs.
[2024-08-14] MEDS: Oseltamivir Phosphate 30 MG CAPSULE PO (09:27)
--- NOTE | 2024-08-14 09:51 | PC.NURSE ---
assumed care of patient at 0700, patient is awake and alert, resp even and unlabored. patient medicated per SEP, takes meds whole with water. patient ate her breakfast tray. plan for patient to dc this morning with job order clerk. patient is resting quietly, very pleasant.
--- NOTE | 2024-08-14 09:59 | PC.NURSE ---
dc papers given to patient, spring crater at bedside for d/c. patient understanding of instructions
[2024-08-14 10:05] VITALS: BP 112/58; PULSE 56; RESP 16; TEMP 36.2; O2SAT 98
--- NOTE | 2024-08-14 10:05 | PC.NURSE ---
patient in wheelchair wheeled off of unit with commercial loan coordinator
== END 2024-08-14 10:50 | disposition home or self-care (01) ==
PROVIDERS: Physician Assistant; Emergency Provider Emergency Medicine; PCP Registered Nurse
DX: J10.1 Influenza due to other identified influenza virus with other respiratory manifestations (principal); M54.50 Low back pain, unspecified; E78.5 Hyperlipidemia, unspecified; Z03.818 Encounter for observation for suspected exposure to other biological agents ruled out
CPT/HCPCS: 0241U; 36415; 72100; 80053; 85025; 87635; 96361; 96374; 96375; 97161; 97165; 97530; 99285; J2270; J2405

== ENCOUNTER → 2024-08-06 14:54 | Outpatient (BNV) | payer OTHER, SELFPAY | PROVIDERS: Emergency Provider Emergency Medicine; PCP Registered Nurse; Visit Provider Radiology Diagnostic Radiology | DX: M54.9 Dorsalgia, unspecified (principal) | CPT/HCPCS: 72100 ==

== ENCOUNTER 2024-08-25 14:13 | Outpatient (AMB) | payer OTHER, SELFPAY ==
--- NOTE | 2024-08-25 14:15 | A.SPINEOV_ITS ---
Intake Visit Reasons: 1st post op Intake Note: Ms. Juan Manuel Isabel is here today for her 1st post op. Linen Attendant Required: No Allergies No Known Allergies Allergy (Verified 08/25/24 14:17) Assessment & Plan Assessment & Plan (1) Acquired spondylolisthesis of lumbosacral region: Code(s): M43.17 - Spondylolisthesis, lumbosacral region Category: Medical Plan Procedure: L5-S1 ALIF Puja comes in today for her 1st postoperative visit after undergoing L5-S1 ALIF a few weeks ago. To recap she was initially evaluated in clinic for severe low back pain and shooting pain into her bilateral lower extremities. Today, she reports that her low back pain has largely resolved, and her initial leg pain has resolved, however she now has a newer pain that starts in her low back shoots over her right lateral thigh down over the anterior knee into the anterior tibialis. She reports this has been ongoing since surgery, and is causing her a great deal of distress. She denies any numbness or tingling associated with the pain. Upon MRI reviewed does not appear that she had any adjacent segment related issues that could be contributing to her pain. We discussed the postoperative healing course and I answered all of her questions to the best of my ability. No new neurological deficits. The patient ambulates well and rises from a seated position without difficulty. Her anterior and posterior incision sites are closed and well healing. I would like to send Puja for a set of x-rays today to ensure there is no obvious subsidence of the interbody cage, or new instability. Assuming these are unremarkable, I would like to see how the patient is feeling in the coming weeks when her inflammation and swelling from surgery go down. I encouraged her to call us in 2 weeks if her symptoms have not begun to subside. Otherwise we will see her at her next visit in 6 weeks and obtain a set of x-rays. Darvin Morfin MD,PhD [facility] Orders: Orders XR lumbar spine 4V min Today M43.17 - Spondylolisthesis, lumbosacral region Medications: Changed From hydrocodone-acetaminophen 5-325 mg Partial Fill upon patient request. 1 tab PO Q4-6H PRN 30 tabs 0RF pain To hydrocodone-acetaminophen 5-325 mg Partial Fill upon patient request. 1 tab PO Q8H PRN 20 tabs 0RF pain Coding Level of Care Code Global (03950) Diagnoses Acquired spondylolisthesis of lumbosacral region M43.17
--- OUTSIDE RECORDS SUMMARY | 2024-08-25 15:13 | XMS_ITS | Clinical Summary ---
Author Organization [facility] ity Address [address] [place] [address] Care Team Providers Care Avionics Supervisor Name Role Phone Caridad Wu Primary Care Provider Social History Tobacco Use Types Packs/Day Years Used Date Smoking Tobacco: Never Assessed Comments Unknown Sex and Gender Information Value Date Recorded Sex Assigned at Not on file Legal Sex Female 5:42 AM EST Gender Identity Not on file Sexual Orientation Not on file Plan of Treatment Health Maintenance Due Date Last Done Comments DTaP,Tdap,and Td Vaccines (1 - Tdap) 1964 Pneumococcal Vaccine: 50+ Ye ars (1 of 1 - PCV) 01/08/1996 Zoster Vaccines (1 of 2) 01/08/1996 RSV Immunization Patients 60 + Years Old (1 - 1-dose 75+ series) 2021 COVID-19 Vaccine (2023-2 5 season) 2024 Influenza Vaccine (#1) 2024 [...] patient's age to complete this topic Meningococcal B Vacine Aged Out No lo nger eligible based on patient's age to complete this topic RSV Immunization Patients Un althea 20 months Aged Out No longer eligible b ased on patient's age to complete this topic Varicella Vaccines Aged Out No longer eligible based on patient's age to complete this topic Care Teams Avionics Supervisor Relationship Specialty Start Date End Date Caridad Wu DO [address] [place] [address] [place] [address] PCP - General Family Medicine 09/16/19
--- OUTSIDE RECORDS SUMMARY | 2024-08-25 15:13 | XMS_ITS | Clinical Summary ---
Author Organization [facility] Address [address] [place] [address] Care Team Providers Care Patient Financial Services Specialist Name Role Phone Linda Curry MD Primary [...] 125 MG chewable tablet 06/12/20 24 Active chlorhexidine (Peridex) 0.12 % solution Use 15 mL in the mouth or throat in the morning and 15 mL in the evening. Do all this for 14 days. 120 mL 08/03/19 25 025 Discontinued Chlorhexidine Gluconate (Hibiclens) 4 % solution Apply 5 mL topically in the morning and 5 mL in the evening. Do all this for 3 days. 100 mL 08/03/19 25 025 Active Problems Problem Noted Date Diagnosed Date Low back pain 07/31/2024 Encounters Date Type Department Care Team Description 08/03/2024 1:30 PM EST Office Visit [facility] - Vascular Access Center [address] [place] [phone] Yovanny Gimenez MD Degeneration of lumbar intervertebral disc <With discogenic back pain and lower extremity pain> (Primary Dx) 07/31/2024 Telephone [facility] - V[facility] Access Center [address] [place] [phone] Sisi Chambers from Last 3 Months Social [...] patient's age to complete this topic Insurance [facility] ([id number]) Care Teams Patient Financial Services Specialist Relationship Specialty Start Date End Date Linda Curry MD [address] [address] PCP - General Internal Medicine 07/30/24
--- OUTSIDE RECORDS SUMMARY | 2024-08-25 15:13 | XMS_ITS | Encounter Summary ---
Author Organization [facility], Address [address] [place] [address] Phone Care Team Providers Care Memorial Adviser Name Role Phone Linda Curry MD Primary Care Provider + Encounter Details Date Type Department Care Team (Latest Contact Info) Description 08/03/2024 1:30 PM EST Office Visit [facility] - [facility] Center [address] [place] [phone] Yovanny Gimenez MD [address] [place] [phone] Degeneration of lumbar intervertebral disc <With discogenic [...] Primary documented in this encounter Care Teams Memorial Adviser Relationship Specialty Start Date End Date Linda Curry MD [address] [place] [address] PCP - General Internal Medicine 07/30/24 documented as of this encounter
--- OUTSIDE RECORDS SUMMARY | 2024-08-25 15:14 | XMS_ITS | Encounter Summary ---
Author Organization [facility], Address [address] [place] [address] Phone Care Team Providers Care Film Splicer Name Role Phone Linda Curry MD Primary Care Provider + Encounter Details Date Type Department Care Team (Late st Contact Info) Description 07/31/2024 Telephone [facility] - [facility] Center [address] [place] [address] [place] [address] Sisi Chambers [address] [place] [phone] Social History Tobacco Use Types Packs/Day Years [...] on filedocumented in this encounter Care Teams Film Splicer Relationship Specialty Start Date End Date Linda Curry MD [address] [address] PCP - General Internal Medicine 07/30/24 documented as of this encounter
== END 2024-08-25 15:17 | disposition home or self-care (01) ==
PROVIDERS: PCP Registered Nurse; Visit Provider Physician Assistant
DX: M43.17 Spondylolisthesis, lumbosacral region (principal)
CPT/HCPCS: 99024

== ENCOUNTER 2024-08-25 14:13 | Outpatient (REF) | payer OTHER, SELFPAY ==
--- NOTE | ~2024-08-25 | XR_ITS ---
EXAMINATION: X-ray lumbar spine. CLINICAL INFORMATION: Spondylolisthesis, lumbosacral region. COMPARISON: August 06, 2024. TECHNIQUE: 4 views of the lumbar spine. FINDINGS: There is a grade 1 anterolisthesis at L4-5 in neutral position which contains during flexion and extension position. There is intact transpedicular screws and posterior connecting rods at L5-S1. Intervertebral body disc spacer placement at L5-S1, intact. No acute cortical disruption. XR/XR lumbar spine 4V min IMPRESSION: Grade 1 anterolisthesis L4-5 without gross instability. Stable posterior L5-S1 fusion. Electronically signed by: Michael Kingsley MD 08/26/2024 11:18 AM EST
--- OUTSIDE RECORDS SUMMARY | 2024-08-25 15:33 | XMS_ITS | Encounter Summary ---
Author Organization [facility], Address [address] [place] [address] Phone Care Team Providers Care Division Toll Wire Chief Name Role Phone Linda Curry MD Primary Care Provider + Encounter Details Date Type Department Care Team (Late st Contact Info) Description 07/31/2024 Telephone [facility] - [facility] [address] [place] [address] [place] [address] Sisi Chambers [address] [place] [phone] Social History Tobacco Use Types Packs/Day Years [...] on filedocumented in this encounter Care Teams Division Toll Wire Chief Relationship Specialty Start Date End Date Linda Curry MD [address] [address] PCP - General Internal Medicine 07/30/24 documented as of this encounter
--- OUTSIDE RECORDS SUMMARY | 2024-08-25 15:33 | XMS_ITS | Clinical Summary ---
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
--- OUTSIDE RECORDS SUMMARY | 2024-08-25 15:33 | XMS_ITS | Clinical Summary ---
Author Organization [facility] ity Address [address] [place] [address] Care Team Providers Care Welder Apprentice Combination Name Role Phone Caridad Wu Primary Care [...] age to complete this topic Care Teams Welder Apprentice Combination Relationship Specialty Start Date End Date Caridad Wu DO [address] [place] [address] PCP - General Family Medicine 09/16/19
--- OUTSIDE RECORDS SUMMARY | 2024-08-25 15:33 | XMS_ITS | Encounter Summary ---
Author Organization [facility], Address [address] [place] [address] Phone Care Team Providers Care Machine Marker Name Role Phone Linda Curry MD Primary Care Provider + Encounter Details Date Type Department Care Team (Latest Contact Info) Description 08/03/2024 1:30 PM EST Office Visit [facility] - [facility] Center [address] [place] [phone] Yovanny Gimenez MD [address] [place] [phone] Degeneration of lumbar intervertebral disc <With discogenic [...] Primary documented in this encounter Care Teams Machine Marker Relationship Specialty Start Date End Date Linda Curry MD [address] [place] [address] PCP - General Internal Medicine 07/30/24 documented as of this encounter
== END 2024-08-25 14:14 | disposition home or self-care (01) ==
LOC: HO.HOSX 14:13
PROVIDERS: PCP Registered Nurse; Visit Provider Physician Assistant
DX: M43.17 Spondylolisthesis, lumbosacral region (principal)
CPT/HCPCS: 72110; 99212

== ENCOUNTER → 2024-08-25 14:41 | Outpatient (BNV) | payer OTHER, SELFPAY | PROVIDERS: PCP Registered Nurse; Visit Provider Radiology Diagnostic Radiology | DX: M43.17 Spondylolisthesis, lumbosacral region (principal) | CPT/HCPCS: 72110 ==

== ENCOUNTER 2024-09-14 07:39 | Outpatient (REF) | payer OTHER, SELFPAY ==
--- NOTE | ~2024-09-14 | CT_ITS ---
EXAMINATION: CT LUMBAR SPINE WITHOUT CONTRAST CLINICAL INFORMATION: Spondylolisthesis lumbosacral region COMPARISON: None available. TECHNIQUE: Axial 2 mm thin and reformatted 2 mm thin sagittal and coronal images of lumbar spine were obtained. This CT examination was performed using dose optimization techniques as appropriate, variously including the following: *Automated exposure control *Adjustment of mA and/or kV according to patient size (this includes techniques or standardized protocols for targeted exams where dose is matched to indication/reason for exam; i.e. extremities or head) *Use of iterative reconstruction technique. DLP: 478 mGy/cm. FINDINGS: There is maintained lumbar lordosis. The vertebral heights and alignment is normal. There is a disc prosthesis at the L5-S1 disc level stabilized with bilateral L5 and S1 pedicular screws and interconnecting rods. No lytic or sclerotic process seen. There is no evidence of disc bulge, herniation or spinal canal stenosis from L1-2, L3-4 disc level. The neural foramina are patent. At L4-5 disc level there is mild diffuse bulge without spinal canal stenosis. The neural foramina are patent. There is hypertrophic left L4-5 facet joint. At L5-S1 disc fusion with capacious spinal canal. There is bilateral The neural foramina are patent bilaterally. The paravertebral soft tissues are normal. No lytic or sclerotic process seen. CT/CT lumbar spine wo IV con IMPRESSION: Disc prosthesis at L5-S1 disc levels with posterior hardware for fusion. The hardware is intact Rest of the CT lumbar spine is unremarkable. Electronically signed by: Alvaro Dickson MD 09/14/2024 08:54 AM EDT
--- OUTSIDE RECORDS SUMMARY | 2024-09-14 07:41 | XMS_ITS | Clinical Summary ---
Author Organization [facility] Address [address] [facility] [address] [address] [place] [address] Care Team Providers Care Monitoring Analyst Name Role Phone Linda Curry MD Primary Care Provider + Medications acetaminophen-code ine (TYLENOL with CODEINE #3) 300-30 MG per tablet 04/27/2024 Activ e cycloSPORINE (RESTASIS) 0.05 % ophthalmic emulsion 07/06/2024 Active Doxepin HCl 3 MG tablet 07/22/2024 Active eszopiclone (LUNESTA) 2 MG tablet 07/03/2024 Active loratadine (CLARITIN) 10 MG tablet 07/16/2024 Active Na Sulfate-K Sulfate-Mg Sulf 17.5-3.13-1.6 GM/177ML solution 07/09/2024 A ctive pramipexole (MIRAPEX) 0.125 MG tablet 07/16/2024 Active rosuvastatin (CRESTOR) 5 MG tablet 07/16/2024 Active Gas Relief Extra Strength 125 MG chewable tablet 06/12/2024 Act kenzie Active Problems Problem Noted Date Diagnosed Date Low back pain 07/31/2024 Encounters Date Type Department Care Team Description 08/03/2024 1:30 PM EST Office Visit [facility] V[facility] Center [address] [address] Yovanny Gimenez MD 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
--- OUTSIDE RECORDS SUMMARY | 2024-09-14 07:41 | XMS_ITS | Clinical Summary ---
Author Organization [facility] ity Address [address] [place] [address] Care Team Providers Care Integrated Program Teacher Name Role Phone Caridad Wu Primary Care [...] age to complete this topic Care Teams Integrated Program Teacher Relationship Specialty Start Date End Date Caridad Wu DO [address] [place] [address] PCP - General Family Medicine 09/16/19
== END 2024-09-14 07:40 | disposition home or self-care (01) ==
LOC: HO.CT 07:39
PROVIDERS: PCP Registered Nurse; Visit Provider Physician Assistant
DX: M43.17 Spondylolisthesis, lumbosacral region (principal)
CPT/HCPCS: 72131

== ENCOUNTER → 2024-09-14 07:40 | Outpatient (BNV) | payer OTHER, SELFPAY | PROVIDERS: PCP Registered Nurse; Visit Provider Radiology Diagnostic Radiology | DX: M43.17 Spondylolisthesis, lumbosacral region (principal) | CPT/HCPCS: 72131 ==

== ENCOUNTER → 2024-09-28 09:41 | Outpatient (BNV) | payer OTHER, SELFPAY | PROVIDERS: PCP Registered Nurse; Visit Provider Radiology Diagnostic Radiology | DX: M47.816 Spondylosis without myelopathy or radiculopathy, lumbar region (principal); M51.25 Other intervertebral disc displacement, thoracolumbar region | CPT/HCPCS: 72148 ==

== ENCOUNTER 2024-09-28 09:45 | Outpatient (REF) | payer OTHER, SELFPAY ==
--- NOTE | ~2024-09-28 | MR_ITS ---
EXAMINATION: MR LUMBAR SPINE WITHOUT CONTRAST CLINICAL INFORMATION: New radiculopathy. Status post surgery. COMPARISON: Correlated to CT dated September 14, 2024. TECHNIQUE: MRI of the lumbar spine was obtained using routine sequences without contrast. FINDINGS: Last rib-bearing vertebra labeled T12. Paramagnetic field distortion secondary to metallic hardware in the posterior elements of L5-S1 and intervertebral disc L5-S1. No bone marrow STIR signal abnormality. Grade 1 retrolisthesis L4-5. Conus medullaris ends at pedicle of L1 with normal signal. No grouping or clumping of the neural elements of the thecal sac. T12-L1: Central disc herniation with mild ventral indentation to the thecal sac. No compression upon neural elements. L1-2: Broad-based disc bulging. No neuroforamina stenosis. No compression upon neural elements. L2-3: Broad-based disc bulging.. No neuroforamina stenosis. No compression upon neural elements. L3-4: Broad-based disc bulging. Facet joint and ligamentum flavum hypertrophy. Reduced AP diameter of the thecal sac and the neural foramina. No compression upon neural elements. L4-5: Broad-based disc bulging. Facet joint and ligamentum flavum hypertrophy. Facet effusions bilaterally. Reduced AP diameter of the thecal sac and the neural foramina. L5-S1: Postsurgical changes. Reduced AP diameter of the thecal sac. Unable to evaluate the neural foramina. No prevertebral compartment hematoma, mass or fluid collection. MR/MR lumbar spine wo con IMPRESSION: Spondylosis, L3-4 and L4-5 levels more pronounced at L4-5. Small central disc herniation T12-L1 without compression upon neural elements. Electronically signed by: Michael Kingsley MD 09/30/2024 07:11 AM EDT
== END 2024-09-28 09:46 | disposition home or self-care (01) ==
LOC: HO.MRI 09:45
PROVIDERS: PCP Registered Nurse; Visit Provider Physician Assistant
DX: M43.17 Spondylolisthesis, lumbosacral region (principal)
CPT/HCPCS: 72148